=== PATIENT | male | born 1985 | race Hispanic/Latino ===

== ENCOUNTER 2023-08-13 04:18 | Emergency (ER) | payer OTHER ==
[2023-08-13] MEDS ORDERED: Lidocaine 1% w/Epinephrine 1:100K 20 ML VIAL ONE (04:39)
[2023-08-13] MEDS ORDERED: Bacitracin 1 PK ONE (04:39)
== END 2023-08-13 06:20 | disposition home or self-care (01) ==
LOC: MADERS 04:18
DX: S01.511A Laceration without foreign body of lip, initial encounter (principal); W22.8XXA Striking against or struck by other objects, initial encounter; Y93.89 Activity, other specified; Y92.69 Other specified industrial and construction area as the place of occurrence of the external cause
CPT/HCPCS: 40650